=== PATIENT | female | born 2000 | race Caucasian/White ===

== ENCOUNTER 2023-05-08 23:40 | Observation (INO) | payer BC ==
[2023-05-09 00:27] VITALS: TEMP 98.3; BMI 52.9
[2023-05-09] MEDS ORDERED: Ondansetron PF 4 MG/2 ML Vial IVP PRN (00:38)
[2023-05-09] MEDS ORDERED: diphenhydrAMINE 25 MG CAP PO PRN (00:38)
[2023-05-09] MEDS ORDERED: Promethazine HCl 25 MG/ML VIAL IM PRN (00:38)
[2023-05-09] MEDS ORDERED: Acetaminophen 500 MG TAB PO PRN (01:09)
[2023-05-09] MEDS ORDERED: Ibuprofen 800 MG TAB PO PRN (01:09)
[2023-05-09] MEDS ORDERED: Lactated Ringer's 1,000 ML IV SCH (01:30)
[2023-05-09] MEDS ORDERED: fentaNYL 50 mcg/mL 1 mL Vial SLOW IVP SCH (01:30)
[2023-05-09] MEDS ORDERED: Clindamycin/D5W 900 MG in Premix Bag 1 BAG IVPB SCH (06:00)
[2023-05-09] MEDS ORDERED: EPINEPHrine 1 MG/ML AMP ONE (08:14)
[2023-05-09] MEDS ORDERED: Bupivacaine 0.25% HCL 30 ML VIAL ONE (08:14)
[2023-05-09] MEDS ORDERED: Mupirocin 2% Ointment 22 GM Tube ONE (08:16)
[2023-05-09 08:58] VITALS: BP 147/90
[2023-05-09] MEDS ORDERED: Doxycycline 100 MG in Sodium Chloride 0.9% 100 ML IVPB SCH (09:00)
== END 2023-05-09 11:44 | disposition home or self-care (01) ==
LOC: UNDOADMOB 23:40 → CSHPED 23:40
PROVIDERS: ADMIT Obstetrics & Gynecology; ATTEND Obstetrics & Gynecology
DX: N76.4 Abscess of vulva (principal); J45.909 Unspecified asthma, uncomplicated; I10 Essential (primary) hypertension; E66.01 Morbid (severe) obesity due to excess calories; Z79.899 Other long term (current) drug therapy; Z87.891 Personal history of nicotine dependence; Z68.43 Body mass index [BMI] 50.0-59.9, adult
CPT/HCPCS: 87070; 87077; 87205; 96365; 96375; G0378; J0171; J3010; J3490; J7120; S0020